=== PATIENT | male | born 1990 | race Caucasian/White ===

== ENCOUNTER 2017-04-14 10:39 | Inpatient (IN) | payer OTHER ==
[~2017-04-14] VITALS: Ht 177.8 cm; Wt 81.6 kg
[2017-04-14 11:32] LABS: PLATELET COUNT 229 x10^3mcL (130-400); RED CELL DISTRIBUTION WIDTH 12.7 % (11.5-14.5)
[2017-04-14 11:47] LABS: CALCIUM 9.1 mg/dL (8.5-10.1); CARBON DIOXIDE 26.7 mmol/L (21-32); CHLORIDE SERUM 102 mmol/L (98-107); CREATININE SERUM 0.9 mg/dL (0.7-1.3); GFR1 > 60 mL/min; GLUCOSE SERUM 133 mg/dL (74-106); POTASSIUM SERUM 4.1 mmol/L (3.5-5.1); SODIUM SERUM 141 mmol/L (136-145)
[2017-04-14 11:55] LABS: ALBUMIN 4.5 g/dL (3.4-5.0); ALKALINE PHOSPHATASE 65 U/L (46-116); ALT/SGPT 86 U/L (16-63); AST/SGOT 19 U/L (15-37); BILIRUBIN TOTAL 1.6 mg/dL (0.20-1.00)
[2017-04-14 11:57] LABS: BAND NEUTROPHIL 3 % (0-10); BASOPHIL 0 % (0-2); MONOCYTE 7 % (0-7); PLATELET MORPHOLOGY PLATELETS NORMAL; SEGMENTED NEUTROPHILS 84 % (37-75); rbc morphology (normal/abnorm) NORMAL (NORMAL)
[2017-04-14 12:49] LABS: microscopic required? YES; urine erythrocyte TRACE (NEGATIVE)
[2017-04-14 13:03] LABS: AMPHETAMINE QUAL UR NONE DETECTED (NEG <=1000)
[2017-04-14 13:25] LABS: T3 TOTAL 1.05 ng/mL
[2017-04-14 13:33] LABS: FREE T4 1.06 ng/dL (0.76-1.46); FREE THYROXINE INDEX 3.2 ug/dL (1.4-4.5); T4(THYROXINE) 9.4 ug/dL (4.7-13.3)
[2017-04-14 13:52] LABS: MAGNESIUM 1.8 mg/dL (1.8-2.4); PHOSPHOROUS 3.1 mg/dL (2.5-4.9)
[2017-04-14 13:53] LABS: CHOLESTEROL/HDL RATIO 2.3
[2017-04-14 16:00] VITALS: BP 145/86
[2017-04-14 20:13] VITALS: BP 128/82
[2017-04-15 05:39] VITALS: BP 115/78
[2017-04-15 06:55] LABS: PLATELET COUNT 199 x10^3mcL (130-400)
[2017-04-15 06:56] LABS: BASOPHIL % 0 % (0-2)
[2017-04-15 10:29] VITALS: BP 133/84
[2017-04-15 13:43] VITALS: BP 130/88
[2017-04-15 17:09] VITALS: BP 128/84
[2017-04-15 21:56] VITALS: BP 110/65
[2017-04-16 06:06] LABS: BASOPHIL % 0.3 % (0-2); PLATELET COUNT 222 x10^3mcL (130-400); RED CELL DISTRIBUTION WIDTH 13.1 % (11.5-14.5)
[2017-04-16 06:19] VITALS: BP 116/84
[2017-04-16 09:09] VITALS: BP 118/84
[2017-04-16] MEDS ORDERED: APAP/HYDROCODON1 T13 PO (14:07)
[2017-04-16] MEDS ORDERED: COL100 PO (14:07)
[2017-04-16] MEDS ORDERED: MOT800 PO (14:08)
[2017-04-16 14:39] VITALS: BP 118/84
== END 2017-04-16 16:10 | disposition home or self-care (01) | DRG 225 ==
LOC: ED 10:39 → DU 12:15 → MU 04-15 10:22
PROVIDERS: Emergency Medicine; Family Medicine; Surgery; ADMIT Family Medicine
PROC: 3E0M05Z Introduction of Adhesion Barrier into Peritoneal Cavity, Open Approach (ICD-10-PCS; 2017-04-14)
PROC: 0DTJ4ZZ Resection of Appendix, Percutaneous Endoscopic Approach (ICD-10-PCS; principal; 2017-04-14 13:30)
DX: K35.80 Unspecified acute appendicitis (principal); N17.0 Acute kidney failure with tubular necrosis; R31.9 Hematuria, unspecified; Z68.25 Body mass index [BMI] 25.0-25.9, adult; E72.20 Disorder of urea cycle metabolism, unspecified
CPT/HCPCS: 80307; 83880; 84439; 94150; G0480; J0330; J0696; J2175; J2250; J2270; J2405; J3010; J3490; J7030; Q0092